=== PATIENT | male | born 1970 | race Caucasian/White ===

== ENCOUNTER → 2020-09-17 03:26 | Outpatient (CLI) | payer BC, SELFPAY ==
[2020-09-17 20:31] LABS: SARS-CoV-2 RNA PCR Negative
== END ==
PROVIDERS: PCP Nurse Practitioner Adult Health; Visit Provider Internal Medicine Gastroenterology
DX: Z01.812 Encounter for preprocedural laboratory examination (principal); Z20.822 Contact with and (suspected) exposure to COVID-19
CPT/HCPCS: C9803; U0003; U0005

== ENCOUNTER 2020-09-20 01:56 | Day surgery (SDC) | payer BC, SELFPAY ==
[2020-09-10 15:59] VITALS: BMI 37.3
[2020-09-20 07:17] VITALS: BP 155/88; PULSE 73; RESP 17; TEMP 36.2; O2SAT 97; BMI 38.1
[2020-09-20] MEDS: LACTATED RINGERS 1,000 ML 150 ML IV CONT (07:31)
--- NOTE | 2020-09-20 07:46 | WPDANESEPPF ---
Anes - Initial Pre Proc Eval Procedure: Operation Date: 09/20/20 08:30 Proposed Procedures p Screening Colonoscopy - Mulugeta Krishna MD Date/Time: 09/20/20 07:46 Surgeon: Mulugeta Krishna MD Pre Op Diagnosis: neoplasm screening, hx colon polyps Patient Data Age: 50 Gender: M Height: 5 ft 6 in Weight: 107.1 kg Last Vital Signs Temp 97.2 F L 09/20/20 07:17 Pulse 73 09/20/20 07:17 Resp 17 09/20/20 07:17 BP 155/88 H 09/20/20 07:17 Pulse Ox 97 09/20/20 07:17 Allergies Allergy/AdvReac Type Severity Reaction Status Date / Time No Known Allergies Allergy Verified 09/20/20 07:12 Home Medications Medication Instructions Recorded Confirmed Type No Home Medications 09/10/20 09/20/20 History Patient hx anesthesia problems: none Family hx anesthesia problems: none FORMERLY [facility], [facility]–1983 Past Medical History Medical History (Updated 09/20/20 @ 07:43 by Demar Lawrence MD) RAI (obstructive sleep apnea) Social History Social History Smoking status: Never smoker Alcohol intake: current Substance use: never Substance use type: does not use Living arrangements: with family Anes - Eval Final PreProcedure Day of Procedure 09/20/20 07:46 Patient weight: obese Heart: regular rate and rhythm Lungs: clear to auscultation Airway: Mallampati scale class II Neurological: alert and oriented Last oral intake: >/= 8 hours ASA classification: II Emergent: no Anesthetic plan: proceed Anesthesia type and monitoring: general GIVS and standard monitoring Informed Consent: The patient's anesthetic plan and its attendant risks and benefits were discussed with the patient/family/POA. Questions were solicited and answers provided to the satisfaction of the patient/family/POA.
--- NOTE | 2020-09-20 07:48 | PM.HPGS ---
History of Present Illness History of Present Illness Consent: Risks, benefits, and alternatives have been discussed and questions answered. Patient agrees to proceed with procedure. Chief complaint: neoplasm screening, hx colon polyps Narrative: Carmelo To is a 50 year old male referred for colonoscopy due to history of polyps. He had about 6 polyps removed 5 years ago. He has seen some blood in his stools from time to time. It is generally bright red. Denies straining or constipation Review of Systems Review of Systems: All systems reviewed & are unremarkable except as noted in HPI and below PMFSH Past Medical History Medical History RAI (obstructive sleep apnea) Social History Social History Smoking status: Never smoker Alcohol intake: current Substance use: never Substance use type: does not use Living arrangements: with family Meds Home Medications and Allergies Home Medications Medication Instructions Recorded Confirmed Type No Home Medications 09/10/20 09/20/20 History Allergies Allergy/AdvReac Type Severity Reaction Status Date / Time No Known Allergies Allergy Verified 09/20/20 07:12 Vital Signs Vital Signs - 24 hr 09/20/20 07:17 Temperature 36.2 C L Pulse Rate 73 Respiratory Rate 17 Blood Pressure 155/88 H Pulse Oximetry 97 Exam Const: General: alert Orientation/consciousness: patient oriented x3 Resp: Auscultation: clear to auscultation bilaterally Cardio: Rhythm: regular rhythm GI: GI Palp: Yes Soft to palpation and No Tenderness to palpation present (GI) Neuro: General: patient oriented x3 Assessment and Plan Assessment and plan (1) Colon cancer screening: Code(s): Z12.11 - Encounter for screening for malignant neoplasm of colon Status: Acute Assessment and Plan: Colonoscopy with possible biopsy or polypectomy or cautery or injection of substances.
[2020-09-20 08:06] VITALS: BP 98/62; PULSE 67; RESP 17; O2SAT 96
[2020-09-20 08:16] VITALS: BP 108/50; PULSE 67; RESP 17; O2SAT 97
[2020-09-20 08:26] VITALS: BP 113/72; PULSE 61; RESP 17; O2SAT 97
== END 2020-09-20 08:40 | disposition home or self-care (01) ==
PROVIDERS: PCP Nurse Practitioner Adult Health; Visit Provider Internal Medicine Gastroenterology
PROC: 0DJD8ZZ Inspection of Lower Intestinal Tract, Via Natural or Artificial Opening Endoscopic (ICD-10-PCS; CPT 45378; principal; 2020-09-20 08:30)
DX: Z12.11 Encounter for screening for malignant neoplasm of colon (principal); D12.4 Benign neoplasm of descending colon; D12.8 Benign neoplasm of rectum; G47.33 Obstructive sleep apnea (adult) (pediatric); K57.32 Diverticulitis of large intestine without perforation or abscess without bleeding; K64.8 Other hemorrhoids; Z86.010 Personal history of colon polyps
CPT/HCPCS: 45385; 45380; 88305; C9803; J2704; J7120; U0003; U0005

== ENCOUNTER 2021-02-21 01:33 | Day surgery (SDC) | payer BC, SELFPAY ==
[2021-02-12 14:47] VITALS: BMI 37.0
[2021-02-21 12:43] VITALS: BP 152/103; PULSE 70; RESP 20; TEMP 36.3; O2SAT 98; BMI 38.7
[2021-02-21 13:51] VITALS: BP 146/92; PULSE 69; RESP 20; TEMP 36.2; O2SAT 97
--- NOTE | 2021-02-21 13:57 | P.HP_ITS ---
History of Present Illness History of Present Illness Consent: Risks, benefits, and alternatives have been discussed and questions answered. Patient agrees to proceed with procedure. Chief complaint: hemorrhoids Narrative: Carmelo To is a 51 year old male here for [facility], he has symptomatic hemorrhoids with bleeding (found to have IH during recent colonoscopy) Review of Systems Constitutional: Constitutional: Denies headache(s) and Denies weakness Eyes: Eyes: Denies blurry vision ENT: Reports Normal hearing present, Denies headache(s) and Denies neck pain Cardiovascular: Cardiovascular: Denies chest pain and Denies dyspnea Respiratory: Respiratory: Denies dyspnea Gastrointestinal: Gastrointestinal: Reports no additional gastrointestinal complaints Genitourinary: Genitourinary: Denies dysuria Musculoskeletal: Musculoskeletal: Denies neck pain Integumentary/Breasts: Skin/Breast: Denies dry skin Neurologic: Reports Normal hearing present, Denies headache(s) and Denies weakness Psychiatric: Psychiatric: Denies anxiety Endocrine: Endocrine: Denies change in body appearance Hematologic/Lymphatic: Hematologic/Lymphatic: Denies easy bleeding Allergic/Immunologic: Allergic/Immunologic: Denies urticaria PMFSH Past Medical History Medical History (Updated 02/21/21 @ 13:57 by Tomasz Ho MD) Internal bleeding hemorrhoids RAI (obstructive sleep apnea) Social History Social History Smoking status: Never smoker Alcohol intake: current Alcohol use details: occasionally Substance use: never Substance use type: does not use Living arrangements: with family Spiritual care concerns: No Meds Home Medications and Allergies Home Medications Medication Instructions Recorded Confirmed Type No Home Medications 09/10/20 02/12/21 History Allergies Allergy/AdvReac Type Severity Reaction Status Date / Time No Known Allergies Allergy Verified 02/12/21 14:46 Vital Signs Vital Signs - 24 hr 02/21/21 12:43 02/21/21 13:51 Temperature 97.3 F L 97.1 F L Pulse Rate 70 69 Respiratory Rate 20 20 Blood Pressure 152/103 H 146/92 H Pulse Oximetry 98 97 Exam Const: General: comfortable and no acute distress HENMT: General nose exam: Normal nares present Eyes: General: appearance normal, both eyes and all related structures Neck: Neck: no JVD Resp: Auscultation: clear to auscultation bilaterally Cardio: Rate: regular rate Rhythm: regular rhythm GI: Inspection: non-distended GI Palp: Yes Soft to palpation Skin: General skin exam: normal color Neuro: General: gait normal Speech: normal speech Extrem: General: normal to inspection Psych: Mental Status: mental status grossly normal Assessment and Plan Assessment and plan (1) Internal bleeding hemorrhoids: Code(s): K64.8 - Other hemorrhoids Status: Acute
--- NOTE | 2021-02-21 13:58 | PM.OP ---
Procedure Note - Brief Procedure Note - Brief Date of procedure: 02/21/21 Pre-op diagnosis: hemorrhoids internal hemorrhoids Post-op diagnosis: same Procedure performed: infrared coagulation (IRC) Description of procedure: rectal exam revealed grade II internal hemorrhoids at 3 0'clock position, no fissure, no other lesions. Then I introduced anoscope and IRC probe, hemorrhoid treated with IRC x4 for 1.5 seconds each time. No complications. Anesthesia: none Surgeon: Tomasz Ho MD Complications: No immediate complications Condition: stable Findings: patient to call again if similar problem and we can set up another IRC treatment
== END 2021-02-21 14:21 | disposition home or self-care (01) ==
PROVIDERS: PCP Nurse Practitioner Adult Health; Visit Provider Internal Medicine Gastroenterology
PROC: (CPT 46930; principal; 2021-02-21 13:30)
DX: K64.1 Second degree hemorrhoids (principal); G47.33 Obstructive sleep apnea (adult) (pediatric)
CPT/HCPCS: 46930